=== PATIENT | male | born 1955 ===

== ENCOUNTER 2023-03-24 07:43 | Outpatient (AMB) | payer MEDICARE, BC, SELFPAY ==
--- NOTE | 2023-03-24 07:47 | A.OFFVIS_ITS ---
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 Pt reports he losing balance easily when he close his eyes. It has been worsened over the last couple of years, and he fell couple of times. Pt states that he can feel the ground but dizzy when he close his eyes, and unsteady. He has flatfeet, uses cane. He gained lots of wt, and having more difficulty walking. Pt recently finished physical therapy for gait training and dizziness. However, his back muscle was pulled and has more pain in his back and difficulty bending, and walking. Pt reports that he had severe esophageal stricture and had couple of procedures done and also takes omeprazole 40mg BID. He thinks his dizziness has been worsened after the procedures and using the high dose of omeprazole. Pt reports he drinks alcohol daily, 7 or more glasses of whisky and beers. Per patient's daughter, he has been drinking more lately and smokes marijuana throughout the day. He usually drinks from 11 am to night. He also smokes marijuana thoughout the day. Pt denies numbness or tingling in upper and lower extremities. Johnny headache. Pt reports he snores, had a sleep study done many years ago, but was told that no sleep apnea. [facility] Medical History (Updated 03/24/23 @ 16:27 by Shadia Lopez CNP) FH: total knee replacement Carpal tunnel syndrome of left wrist Family History (Updated 03/24/23 @ 07:54 by Uyen Kumar CMA) Father Aortic valve replaced Skin cancer Seizure Mother HTN (hypertension) Asthma Afib Social History (Updated 03/24/23 @ 07:55 by Uyen Kumar CMA) Alcohol intake: current Patient Tobacco Use Status: Current everyday Tobacco user Use of substances other than those prescribed or required for medical reasons: Yes Substance Use Type: Marijuana Review of Systems Const All systems reviewed & are unremarkable except as noted in HPI and below ENT Reports Normal hearing present Neuro Reports Normal hearing present Physical Exam Vital Signs: Last Vital Signs Pulse 96 03/24/23 07:56 BP 158/58 H 03/24/23 07:56 Pulse Ox 98 03/24/23 07:56 Oxygen Delivery Method Room Air 03/24/23 07:56 BMI result Body Mass Index 35.2 Const General: cooperative Nutritional Appearance: obese Orientation/consciousness: patient oriented x3 Neck Neck: Yes full ROM and Yes supple Resp Effort & Inspection: normal respiratory effort and able to speak in complete sentences Neuro Other: Bilateral hands tremor, and mild head tremor. Unable to do tandem gait. Difficulty standing up. General: patient oriented x3 Cranial nerves: Yes Bilaterally intact EOM present, Yes Normal facial strength present, Yes Midline tongue present, Yes Symmetric palate elevation present, Yes Normal hearing present, Yes Ability to bilaterally rotate head present and Yes Ability to bilaterally elevate shoulders present Cognition (Neuro): normal cognition Gait exam (Neuro): Antalgic gait present and Assisted gait required Motor exam (neuro): Tremors during motor activity present (mild head tremor, bilateral posturing tremor. ) Deep tendon reflexes (DTR's): Right brachioradialis reflex intensity grade: 2+, Left brachioradialis reflex intensity grade: 2+, Right patellar reflex intensity grade: 3+ and Left patellar reflex intensity grade: 3+ Psych Appearance: grossly normal Mental Status: mental status grossly normal Affect: normal affect Attitude: cooperative Assessment & Plan Assessment & Plan (1) Gait disturbance: Code(s): R26.9 - Unspecified abnormalities of gait and mobility (2) Alcoholism: Code(s): F10.20 - Alcohol dependence, uncomplicated (3) Dizziness: Code(s): R42 - Dizziness and giddiness (4) Difficulty balancing: Code(s): R29.818 - Other symptoms and signs involving the nervous system Plan Discussed patient regarding chronic alcoholism often associated with disturbed gait and balance, likely caused by alcohol damage to neural system. Advised patient alcohol cessation. Pt is willing to try quit drinking alcohol, but does not want to refer to rehab for alcoholism at this time. Pt does not want to do brain MRI or EMG. Will check vitamin B12 and folate level. Orders: Orders Vitamin B12 and Folate Today F10.20 - Alcohol dependence, uncomplicated, I10 - Essential (primary) hypertension, R53.83 - Other fatigue Coding Level of Care Code New Pt Level 4 (47652) Diagnoses Gait disturbance R26.9 Alcoholism F10.20 Dizziness R42 Difficulty balancing R29.818
[2023-03-24 07:56] VITALS: BP 158/58; PULSE 96; O2SAT 98; BMI 35.2
== END 2023-03-24 08:43 | disposition home or self-care (01) ==
PROVIDERS: PCP Physician Assistant; Visit Provider Nurse Practitioner Family
DX: R26.9 Unspecified abnormalities of gait and mobility (principal); F10.20 Alcohol dependence, uncomplicated; R42 Dizziness and giddiness; R29.818 Other symptoms and signs involving the nervous system
CPT/HCPCS: 99204

== ENCOUNTER → 2023-03-24 07:43 | Outpatient (BNVA) | payer MEDICARE, BC, SELFPAY | PROVIDERS: PCP Physician Assistant; Visit Provider Nurse Practitioner Family ==